=== PATIENT | male | born 1935 | race Caucasian/White ===

== ENCOUNTER 2019-08-30 06:46 | Day surgery (SDC) | payer MEDICARE, OTHER ==
[~2019-08-30 06:46] MED LIST: Lactated Ringers 1,000 ML IV SCH; Sodium Chloride 0.9% 10 ML Syringe FLUSH PRN
[2019-08-30] MEDS ORDERED: Propofol 200 MG/20 ML SDV ONE (07:46)
[2019-08-30] MEDS ORDERED: fentaNYL 100 MCG/2 ML SDV ONE (07:46)
[2019-08-30 10:24] VITALS: BP 120/48; PULSE 57
--- NOTE | 2019-08-30 17:11 | OR ---
PRE-OPERATIVE DIAGNOSES: History of colon polyps with last colonoscopy being about 4 years ago. The patient also describes loose stool with urgency 1 to 2 hours after his first morning stool. He does have a history of prostate cancer and is status post radiation treatments. POST-OPERATIVE DIAGNOSES: 1. 3 tiny polyps removed all using cold forceps. a. 2 mm polyp at 140 cm. b. 2 mm polyp at 130 cm. c. 2 mm polyp at 35 cm. 2. 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 Cold biopsy x2 bites taken. 3. Mild diverticulosis, left-sided. PROCEDURE: Colonoscopy with polypectomy x3 and cold biopsy x1 site. ANESTHESIA: Monitored anesthesia care. BOWEL PREP: Good. Jeremy is an 83-year-old male who was brought to the endoscopy suite after discussing risks and benefits of the procedure. Informed consent was obtained for conscious sedation and colonoscopy with or without biopsy and/or polypectomy. We also discussed possibility of missed lesions. Pre-procedure exam was unremarkable. IV, oxygen, and monitors were placed. The patient was placed in the left lateral decubitus position. Sedation was administered and a digital rectal exam was performed and remarkable for some scar tissue where the prostate was previously prior to his radiation treatments. Colonoscope was passed into the rectum and slowly advanced all the way to the cecum. Cecum was viewed and photographed. The colonoscope was slowly withdrawn and the mucosa was closed observed in a direct circumferential manner. The ascending colon was remarkable for a 2-mm polyp at 140 cm and 2-mm polyp at 130 cm, both removed using cold forceps. The transverse colon was unremarkable. Descending and sigmoid colon revealed some mild diverticulosis. Sigmoid colon also revealed 2 mm polyp at 35 cm, removed using cold forceps. Retroflexion was performed and rectal mucosa was remarkable for some mild proctitis, but no active bleeding. Scope was removed. The patient tolerated the procedure well. The patient was monitored until that baseline status. Discharge instructions were reviewed and the patient was discharged in good condition. COMPLICATIONS: None. TOTAL TIME: 21 minutes. ESTIMATED BLOOD LOSS: About 1 mL. RECOMMENDATIONS/FOLLOW-UP: We will await results of path report to determine ideal followup interval. We will have the patient hold his aspirin for about 3 days. I would like to kindly thank Jairo Ochoa and Dr. Bunch for this referral. DMB: 08/30/2019 12:43:32 MODL: 08/30/2019 17:03:25 /[id number]
== END 2019-08-30 11:05 | disposition home or self-care (01) ==
LOC: VM.SDS 06:46
PROVIDERS: ATTEND Family Medicine
DX: D12.2 Benign neoplasm of ascending colon (principal); K62.89 Other specified diseases of anus and rectum; K57.30 Diverticulosis of large intestine without perforation or abscess without bleeding; R06.81 Apnea, not elsewhere classified; H61.23 Impacted cerumen, bilateral; E78.5 Hyperlipidemia, unspecified; I10 Essential (primary) hypertension; J44.9 Chronic obstructive pulmonary disease, unspecified; Z86.018 Personal history of other benign neoplasm; Z98.890 Other specified postprocedural states; Z85.46 Personal history of malignant neoplasm of prostate; Z92.3 Personal history of irradiation; Z79.899 Other long term (current) drug therapy; Z79.82 Long term (current) use of aspirin; Z88.0 Allergy status to penicillin; Z91.030 Bee allergy status; Z90.49 Acquired absence of other specified parts of digestive tract; Z87.891 Personal history of nicotine dependence
CPT/HCPCS: 00811; 45380; 88305; J2704; J3010; J7120

== ENCOUNTER 2020-03-21 02:40 | Emergency (ER) | payer MEDICARE, OTHER ==
[2020-03-21] MEDS ORDERED: Sodium Chloride 0.9% 10 ML Syringe FLUSH PRN (02:53)
--- NOTE | 2020-03-21 03:04 | EDM.PDOC ---
ED HPI GENERAL MEDICAL PROBLEM - General Chief Complaint: Chest Pain Stated Complaint: Left Sided Neck Pain Time Seen by Provider: 03/21/20 02:40 Source of Information: Reports: Patient History Limitations: Reports: No Limitations - History of Present Illness INITIAL COMMENTS - FREE TEXT/NARRATIVE: Patient comes to the emergency department complaint of left sided chest pain. Th e pain Began around 11 PM last evening. The patient also states it feels like a pressure sensation on the left side of chest that radiates up to the left-sided neck. Patient did take 2 full aspirins at home prior to arrival to the emergency department. He also does take a baby aspirin on a daily basis. He states when he takes a deep breath he notices the pain is more prevalant in the neck but the chest pressure is still present. He does endorse getting nauseated with this. Onset: Sudden Quality: Reports: Throbbing Severity: Moderate Improves with: Reports: None Worsens with: Reports: None Associated Symptoms: Reports: No Other Symptoms - Related Data Allergies Allergy/AdvReac Type Severity Reaction Status Date / Time Penicillins Allergy Hives Verified 03/21/20 03:14 bee stings Allergy Edema Uncoded 03/21/20 03:14 Home Meds: Home Meds Aspirin [Halfprin] 81 mg PO DAILY 10/09/14 [History] Doxazosin Mesylate [Cardura] 1 tab PO BID 10/09/14 [History] Ibuprofen 800 mg PO DAILY 08/21/19 [History] Past Medical History HEENT History: Reports: Hard of Hearing, Impaired Vision, Other (See Below) Other HEENT History: Dry eyes Cardiovascular History: Reports: High Cholesterol, Hypertension Respiratory History: Reports: COPD Other Respiratory History: 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 Refferral to sleep study Other Genitourinary History: Radiation proctitis. 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 Impaired fasting glucose Oncologic (Cancer) History: Reports: Basal Cell Carcinoma, Prostate Other Oncologic History: BCC Face Dermatologic History: Reports: Other (See Below) Other Dermatologic History: Actinic keratosis - Past Surgical History HEENT Surgical History: Reports: Cataract Surgery GI Surgical History: Reports: Appendectomy, Colonoscopy, Hernia, Abdominal, Polypectomy ED ROS GENERAL - Review of Systems Review Of Systems: Comprehensive ROS is negative, except as noted in HPI. Constitutional: Reports: No Symptoms HEENT: Reports: No Symptoms Respiratory: Reports: No Symptoms Cardiovascular: Reports: Chest Pain Endocrine: Reports: No Symptoms GI/Abdominal: Reports: No Symptoms : Reports: No Symptoms Musculoskeletal: Reports: No Symptoms Skin: Reports: No Symptoms Neurological: Reports: No Symptoms Psychiatric: Reports: No Symptoms Hematologic/Lymphatic: Reports: No Symptoms Immunologic: Reports: No Symptoms ED EXAM, GENERAL - Physical Exam Exam: See Below Exam Limited By: No Limitations General Appearance: Alert, WD/WN, No Apparent Distress Head: Atraumatic, Normocephalic Neck: Normal Inspection, Supple, Non-Tender, Full Range of Motion Respiratory/Chest: No Respiratory Distress, Lungs Clear, Normal Breath Sounds, No Accessory Muscle Use, Chest Non-Tender Cardiovascular: Normal Peripheral Pulses, Regular Rate, Rhythm, No Edema, No Murmur, No Rub, Diastolic Murmur Peripheral Pulses: 4+: Radial (L), Radial (R) GI/Abdominal: Normal Bowel Sounds, Soft, Non-Tender Back Exam: Normal Inspection, Full Range of Motion Extremities: Normal Inspection, Normal Range of Motion, Non-Tender, Normal Capillary Refill Neurological: Alert, Oriented, Normal Gait, No Motor/Sensory Deficits Psychiatric: Normal Affect, Normal Mood Skin Exam: Warm, Dry, Intact, Normal Color, No Rash Course - Vital Signs Last Recorded V/S: Last Vital Signs Temp 36.8 C 03/21/20 02:45 Pulse 87 03/21/20 02:45 Resp 16 03/21/20 02:45 BP 164/65 H 03/21/20 03:11 Pulse Ox 95 03/21/20 02:45 - Orders/Labs/Meds Orders: Active Orders 24 hr Category Date Time Status Chest 1V Frontal [CR] Stat Exams 03/21/20 02:55 Taken Sodium Chloride 0.9% [Saline Flush] Med 03/21/20 02:53 Active 10 ml FLUSH ASDIRECTED PRN Peripheral IV Insertion Adult [OM.PC] Stat Oth 03/21/20 02:53 Ordered Medication Orders Sodium Chloride (Saline Flush) 10 ml FLUSH ASDIRECTED PRN PRN Reason: Keep Vein Open Labs: Laboratory Tests 03/21/20 03/21/20 03/21/20 Range/Units 02:56 02:56 02:56 WBC 8.3 (4.0-10.0) x10^3/uL RBC 4.14 L (4.5-6.0) x10^6/uL Hgb 13.0 L (14.0-18.0) g/dL Hct 38.6 L (40.0-52.0) % MCV 93.2 H (78.0-93.0) fL MCH 31.4 (26.0-32.0) pg MCHC 33.7 (32.0-36.0) g/dL RDW Coeff of [place] 12.9 (10.0-15.0) % Plt Count 176 (130-400) x10^3/uL Neut % (Auto) 61.5 (50.0-80.0) % Lymph % (Auto) 23.5 L (25.0-50.0) % Emery % (Auto) 10.8 (2.0-11.0) % Eos % (Auto) 3.7 (0.0-4.0) % Baso % (Auto) 0.5 (0.2-1.2) % PT 10.4 (9.5-12.3) SEC INR 1.0 L (2.0-3.5) Sodium 139 (136-145) mmol/L Potassium 4.4 (3.5-5.1) mmol/L Chloride 102 (98-107) mmol/L Carbon Dioxide 27 (21-32) mmol/L Anion Gap 14.4 (10-20) mmol/L BUN 28 H (7-18) mg/dL Creatinine 1.3 (0.70-1.30) mg/dL Est Cr Clr Drug Dosing 39.55 mL/min Estimated GFR (MDRD) 53 Glucose 105 (74-106) mg/dL Calcium 8.6 (8.5-10.1) mg/dL Corrected Calcium 8.92 (8.5-10.1) mg/dL Total Bilirubin 0.6 (0.2-1.0) mg/dL AST 16 (15-37) U/L ALT 18 (16-63) U/L Alkaline Phosphatase 76 (46-116) U/L Troponin I < 0.017 (<=0.056) ng/mL Total Protein 7.3 (6.4-8.2) g/dL Albumin 3.6 (3.4-5.0) g/dL Globulin 3.7 Albumin/Globulin Ratio 0.97 Meds: Medications Generic Name Dose Route Start Last Admin Trade Name Freq PRN Reason Stop Dose Admin Sodium Chloride 10 ml 03/21/20 02:53 Saline Flush FLUSH ASDIRECTED PRN Keep Vein Open Discontinued Medications Generic Name Dose Route Start Last Admin Trade Name Freq PRN Reason Stop Dose Admin Nitroglycerin 0.4 mg 03/21/20 03:15 03/21/20 03:11 Nitrostat SL 03/21/20 03:16 0.4 mg ONETIME ONE Administration Departure - Departure Time of Disposition: 04:00 Disposition: DC/Tfer to Acute Hospital 02 Condition: Good Clinical Impression: Unstable angina Chest pain Qualifiers: Chest pain type: unspecified Qualified Code(s): R07.9 - Chest pain, unspecified - Discharge Information *PRESCRIPTION DRUG MONITORING PROGRAM REVIEWED*: Not Applicable *COPY OF PRESCRIPTION DRUG MONITORING REPORT IN PATIENT JANESSA: Not Applicable Referrals: Mandy García MD [Primary Care Provider] - Forms: ED Department Discharge, Interfacility Transfer [facility] Sepsis Event Note (ED) - Focused Exam Vital Signs: Vital Signs Temp Pulse Resp BP BP Pulse Ox 03/21/20 03:11 164/65 H 03/21/20 02:45 36.8 C 87 16 166/53 H 95 - My Orders Last 24 Hours: My Active Orders 03/21/20 02:53 Sodium Chloride 0.9% [Saline Flush] 10 ml FLUSH ASDIRECTED PRN Peripheral IV Insertion Adult [OM.PC] Stat 03/21/20 02:55 Chest 1V Frontal [CR] Stat - Assessment/Plan Last 24 Hours: My Active Orders 03/21/20 02:53 Sodium Chloride 0.9% [Saline Flush] 10 ml FLUSH ASDIRECTED PRN Peripheral IV Insertion Adult [OM.PC] Stat 03/21/20 02:55 Chest 1V Frontal [CR] Stat Assessment:: 1. chest pain 2. unstable angina Plan: 1. Labs completed in the ER. Results reviewed with the patient 2. IV initiated in the emergency department 3. IV fluids provided 4. Chest xray completed in ER. Results reviewed with the patient 5. ASA not given for patient took prior to arrival 6. EKG was completed in ER. Results reviewed with the patient 7. Patient and nursing staff was updated regarding the plan of care 8. Cardiology at [facility] contacted at [phone] regarding EKG findings. He does not believe this in a STEMI but would recommend another EKG if no changes complete workup and transfer if chest pain continues for further cardiology workup . 9. Nitro give SL with relief noted within 5 minutes. 10. chest pain returned at 0356 mid-chest pressure wrapping around from the back. Nitro SL given. Will start nitro drip drip 5mcg/min 11. [facility] call called at 03:35 regarding patient. They stated they would need to call back. [phone] called back. Hospitalist contacted regarding transfer. [phone]- they will need to discuss transfer due to high census that their facility [phone] called back with connecting with hospitalist.His request to start a heparin drip per protocol as well. [facility] will call back with a bed prior to transferring this patient 12. Heparin NSTEMI protocol followed. 4,000unit blous followed by 1,000unit/hr. 13. Zofran 4mg IV given for nausea 14. Patient and family are agreeable to the above plan of care 15. All questions and concerns were addressed with the patient and family prior to discharge
[2020-03-21] MEDS ORDERED: Nitroglycerin 0.4 MG Tab.SL SL ONE ×2 (03:15→04:08)
[2020-03-21 03:30] LABS: CHLORIDE,CL 102 mmol/L (98-107); SODIUM,NA 139 mmol/L (136-145)
[2020-03-21 03:31] LABS: ANION GAP 14.4 mmol/L (10-20)
[2020-03-21] MEDS ORDERED: Sodium Chloride 0.9% 1,000 ML IV ONE (03:54)
[2020-03-21] MEDS ORDERED: Nitroglycerin/D5W 25 MG/250 ML BOTTLE IV SCH (04:00)
[2020-03-21] MEDS ORDERED: Ondansetron 4 MG/2 ML SDV IVPUSH ONE ×2 (04:15→05:35)
[2020-03-21] MEDS ORDERED: Heparin Sodium 5,000 Units/ML Vial IVPUSH ONE (04:22)
[2020-03-21] MEDS ORDERED: Heparin Sodium/0.45% NaCl 25,000 UNITS/500 ML BAG IV SCH (04:30)
[2020-03-21] MEDS ORDERED: Heparin Sodium/0.45% NaCl 25,000 UNITS/500 ML BAG IV STA (04:33)
[2020-03-21 06:31] VITALS: BP 145/56
[2020-03-21 06:34] VITALS: PULSE 78
[2020-03-21] MEDS ORDERED: Nitroglycerin/D5W 25 MG/250 ML BOTTLE ONE (06:54)
--- NOTE | 2020-03-21 08:06 | CR ---
[id number] RAD/RAD Chest Portable EXAM: RAD Chest Portable INDICATION: CHEST PAIN COMPARISON: None. DISCUSSION: Cardiomediastinal silhouette is normal in size and contour. No infiltrate, effusion, pneumothorax, or edema. Pulmonary hyperinflation. IMPRESSION: No acute cardiopulmonary abnormality. Momo Mckenzie DO 03/21/20 0805 Thank you for allowing us to participate in the care of your patient.
== END 2020-03-21 06:00 | disposition short-term general hospital (02) ==
LOC: VM.ED 02:40
DX: I20.0 Unstable angina (principal); I10 Essential (primary) hypertension; J44.9 Chronic obstructive pulmonary disease, unspecified; Z88.0 Allergy status to penicillin; Z91.030 Bee allergy status; Z90.49 Acquired absence of other specified parts of digestive tract; Z79.82 Long term (current) use of aspirin; Z79.899 Other long term (current) drug therapy
CPT/HCPCS: 71045; 80053; 84484; 85025; 85610; 93005; 96361; 96365; 96366; 96368; 96375; 96376; 99284; 99285-25; J1644; J2405; J3490; J7030

== ENCOUNTER 2021-08-06 10:46 | Day surgery (SDC) | payer MEDICARE, OTHER ==
[~2021-08-06 10:46] MED LIST changes: -Sodium Chloride 0.9% 10 ML Syringe FLUSH PRN
[2021-08-06] MEDS ORDERED: Propofol 200 MG/20 ML SDV ONE (11:10)
[2021-08-06] MEDS ORDERED: fentaNYL 100 MCG/2 ML SDV ONE (11:10)
[2021-08-06 14:42] VITALS: BP 132/45; PULSE 53
== END 2021-08-06 14:20 | disposition home or self-care (01) ==
LOC: VM.SDS 10:46
PROVIDERS: ATTEND Family Medicine
DX: K29.50 Unspecified chronic gastritis without bleeding (principal); K21.00 Gastro-esophageal reflux disease with esophagitis, without bleeding; K29.80 Duodenitis without bleeding; K31.89 Other diseases of stomach and duodenum; K44.9 Diaphragmatic hernia without obstruction or gangrene; D50.8 Other iron deficiency anemias; N18.31 Chronic kidney disease, stage 3a; I12.9 Hypertensive chronic kidney disease with stage 1 through stage 4 chronic kidney disease, or unspecified chronic kidney disease; K80.20 Calculus of gallbladder without cholecystitis without obstruction; E78.00 Pure hypercholesterolemia, unspecified; N52.9 Male erectile dysfunction, unspecified; J44.9 Chronic obstructive pulmonary disease, unspecified; N40.1 Benign prostatic hyperplasia with lower urinary tract symptoms; R39.14 Feeling of incomplete bladder emptying; Z79.899 Other long term (current) drug therapy; Z79.82 Long term (current) use of aspirin; Z88.0 Allergy status to penicillin; Z91.030 Bee allergy status; Z90.49 Acquired absence of other specified parts of digestive tract; Z98.890 Other specified postprocedural states; Z87.891 Personal history of nicotine dependence
CPT/HCPCS: 00731; 88305; 88342; J2704; J3010; J7120

== ENCOUNTER 2022-11-25 09:29 | Day surgery (SDC) | payer MEDICARE, OTHER ==
[2022-11-25] MEDS: Lactated Ringers 1,000 ML IV SCH (09:53)
[2022-11-25] MEDS ORDERED: Propofol 200 MG/20 ML SDV ONE (10:46)
[2022-11-25] MEDS ORDERED: fentaNYL 100 MCG/2 ML SDV ONE (10:46)
[2022-11-25 12:07] VITALS: BP 114/42; PULSE 56
== END 2022-11-25 13:00 | disposition home or self-care (01) ==
LOC: VM.SDS 09:29
PROVIDERS: ATTEND Family Medicine
DX: D12.3 Benign neoplasm of transverse colon (principal); K29.50 Unspecified chronic gastritis without bleeding; K21.00 Gastro-esophageal reflux disease with esophagitis, without bleeding; D50.9 Iron deficiency anemia, unspecified; R63.4 Abnormal weight loss; K57.30 Diverticulosis of large intestine without perforation or abscess without bleeding; K64.9 Unspecified hemorrhoids; E78.00 Pure hypercholesterolemia, unspecified; I65.23 Occlusion and stenosis of bilateral carotid arteries; R73.01 Impaired fasting glucose; N40.0 Benign prostatic hyperplasia without lower urinary tract symptoms; I12.9 Hypertensive chronic kidney disease with stage 1 through stage 4 chronic kidney disease, or unspecified chronic kidney disease; N18.30 Chronic kidney disease, stage 3 unspecified; J44.9 Chronic obstructive pulmonary disease, unspecified; Z98.890 Other specified postprocedural states; Z79.899 Other long term (current) drug therapy; Z79.82 Long term (current) use of aspirin; Z88.0 Allergy status to penicillin; Z87.891 Personal history of nicotine dependence
CPT/HCPCS: 00811; 88305; 88342; J2704; J3010; J7120

== ENCOUNTER 2023-05-19 10:53 | Emergency (ER) | payer MEDICARE, OTHER ==
[2023-05-19 12:42] VITALS: BP 168/57; PULSE 57
== END 2023-05-19 12:00 | disposition home or self-care (01) ==
LOC: VM.ED 10:53
DX: R33.9 Retention of urine, unspecified (principal); R31.9 Hematuria, unspecified; I12.9 Hypertensive chronic kidney disease with stage 1 through stage 4 chronic kidney disease, or unspecified chronic kidney disease; N18.9 Chronic kidney disease, unspecified; E78.00 Pure hypercholesterolemia, unspecified; J44.9 Chronic obstructive pulmonary disease, unspecified; K21.9 Gastro-esophageal reflux disease without esophagitis; Z90.49 Acquired absence of other specified parts of digestive tract; Z79.82 Long term (current) use of aspirin; Z79.899 Other long term (current) drug therapy; Z88.0 Allergy status to penicillin; Z91.030 Bee allergy status
CPT/HCPCS: 51702; 99283

== ENCOUNTER 2023-05-29 15:30 | Emergency (ER) | payer MEDICARE, OTHER ==
[2023-05-29 16:01] VITALS: BP 149/35; PULSE 60
== END 2023-05-29 16:36 | disposition home or self-care (01) ==
LOC: VM.ED 15:30
DX: R31.0 Gross hematuria (principal); N40.1 Benign prostatic hyperplasia with lower urinary tract symptoms; R33.8 Other retention of urine; I12.9 Hypertensive chronic kidney disease with stage 1 through stage 4 chronic kidney disease, or unspecified chronic kidney disease; N18.9 Chronic kidney disease, unspecified; E78.00 Pure hypercholesterolemia, unspecified; J44.9 Chronic obstructive pulmonary disease, unspecified; K21.9 Gastro-esophageal reflux disease without esophagitis; Z90.49 Acquired absence of other specified parts of digestive tract; Z79.899 Other long term (current) drug therapy; Z88.0 Allergy status to penicillin; Z91.030 Bee allergy status
CPT/HCPCS: 51702; 99283; 99284

== ENCOUNTER 2023-06-21 13:08 | Emergency (ER) | payer MEDICARE, OTHER ==
[2023-06-21 13:47] LABS: BILIRUBIN,URINE NEGATIVE (NEGATIVE); COLOR,URINE YELLOW (YELLOW); GLUCOSE,URINE NEGATIVE (NEGATIVE); KETONES,URINE NEGATIVE (NEGATIVE); LEUKOCYTE ESTERASE,URINE SMALL (NEGATIVE); NITRITE,URINE NEGATIVE (NEGATIVE); OCCULT BLOOD,URINE MODERATE (NEGATIVE); PROTEIN,URINE 30 mg/dL (NEGATIVE); UROBILINOGEN,URINE 0.2 EU/dL (0.2)
[2023-06-21 13:48] LABS: APPEARANCE,URINE SLIGHTLY CLOUDY (CLEAR)
[2023-06-21 13:53] LABS: BACTERIA,URINE OCCASIONAL /HPF (NOT SEEN); MUCUS,URINE RARE /LPF (NOT SEEN); RBC,URINE 20-30 /HPF (NOT SEEN); SQUAMOUS EPITHELIAL CELLS,UR NOT SEEN /HPF (NOT SEEN)
[2023-06-21 18:43] VITALS: BP 156/56; PULSE 83
== END 2023-06-21 14:10 | disposition home or self-care (01) ==
LOC: VM.ED 13:08
DX: R33.9 Retention of urine, unspecified (principal); I10 Essential (primary) hypertension; J44.9 Chronic obstructive pulmonary disease, unspecified; K21.9 Gastro-esophageal reflux disease without esophagitis; Z79.82 Long term (current) use of aspirin; Z79.899 Other long term (current) drug therapy; Z91.030 Bee allergy status; Z88.0 Allergy status to penicillin
CPT/HCPCS: 51702; 81001; 87086; 99284

== ENCOUNTER 2023-06-23 04:50 | Emergency (ER) | payer MEDICARE, OTHER ==
[2023-06-23 05:58] VITALS: BP 174/55; PULSE 80
== END 2023-06-23 05:35 | disposition home or self-care (01) ==
LOC: VM.ED 04:50
DX: R33.8 Other retention of urine (principal); I10 Essential (primary) hypertension; K21.9 Gastro-esophageal reflux disease without esophagitis; Z91.030 Bee allergy status; Z88.0 Allergy status to penicillin; Z79.82 Long term (current) use of aspirin; Z90.49 Acquired absence of other specified parts of digestive tract
CPT/HCPCS: 51700; 99283

== ENCOUNTER 2023-06-25 01:40 | Emergency (ER) | payer MEDICARE, OTHER ==
[2023-06-25 02:29] VITALS: BP 125/66; PULSE 70
== END 2023-06-25 02:35 | disposition home or self-care (01) ==
LOC: VM.ED 01:40
DX: N39.0 Urinary tract infection, site not specified (principal); I10 Essential (primary) hypertension; K21.9 Gastro-esophageal reflux disease without esophagitis; Z88.0 Allergy status to penicillin; Z91.030 Bee allergy status; Z90.49 Acquired absence of other specified parts of digestive tract
CPT/HCPCS: 99283

== ENCOUNTER 2023-06-28 02:10 | Emergency (ER) | payer MEDICARE, OTHER ==
[2023-06-28 02:52] VITALS: BP 139/44; PULSE 86
== END 2023-06-28 03:02 | disposition home or self-care (01) ==
LOC: VM.ED 02:10
DX: R33.9 Retention of urine, unspecified (principal); E78.00 Pure hypercholesterolemia, unspecified; J44.9 Chronic obstructive pulmonary disease, unspecified; J12.9 Viral pneumonia, unspecified; N18.9 Chronic kidney disease, unspecified; K21.9 Gastro-esophageal reflux disease without esophagitis; Z79.82 Long term (current) use of aspirin; Z79.899 Other long term (current) drug therapy; Z91.030 Bee allergy status; Z88.0 Allergy status to penicillin
CPT/HCPCS: 99283; 99284

== ENCOUNTER 2023-06-28 13:34 | Emergency (ER) | payer MEDICARE, OTHER ==
[2023-06-28 20:18] VITALS: BP 173/80; PULSE 101
== END 2023-06-28 15:05 | disposition home or self-care (01) ==
LOC: VM.ED 13:34
DX: R33.9 Retention of urine, unspecified (principal); I12.9 Hypertensive chronic kidney disease with stage 1 through stage 4 chronic kidney disease, or unspecified chronic kidney disease; N18.9 Chronic kidney disease, unspecified; E78.00 Pure hypercholesterolemia, unspecified; J44.9 Chronic obstructive pulmonary disease, unspecified; Z79.82 Long term (current) use of aspirin; Z79.899 Other long term (current) drug therapy; Z88.0 Allergy status to penicillin; Z91.030 Bee allergy status
CPT/HCPCS: 99283; 99284